=== PATIENT | female | born 1985 | race Two or more races ===

== ENCOUNTER 2025-03-28 10:16 | Emergency (ER) | payer MEDICAID, OTHER ==
[~2025-03-28] VITALS: Ht 162.6 cm; Wt 54.0 kg
[2025-03-28 10:27] VITALS: BP 107/74; TEMP 37.8; O2SAT 98
[2025-03-28 10:32] VITALS: PULSE 92; RESP 18; O2SAT 99
[2025-03-28] MEDS ORDERED: IBUP-2029 MT (13:11)
[2025-03-28 13:51] LABS: INFLUENZA TYPE A Presumptive Negative (Pres. Neg.)
[2025-03-28 13:52] LABS: INFLUENZA TYPE B Presumptive Negative (Pres. Neg.); RESPIRATORY SYNCYTIAL VIRUS Not Detected (Not Detectd)
== END 2025-03-28 14:00 | disposition home or self-care (01) ==
LOC: ER 10:16
DX: J06.9 Acute upper respiratory infection, unspecified (principal); B97.89 Other viral agents as the cause of diseases classified elsewhere; R05.9 Cough, unspecified; Z20.822 Contact with and (suspected) exposure to COVID-19; Z91.040 Latex allergy status; Z91.148 Patient's other noncompliance with medication regimen for other reason
CPT/HCPCS: 87420; 87426; 87804; 99283